=== PATIENT | female | born 1995 | race Asian ===

== ENCOUNTER → 2018-08-20 | Outpatient (REF) | payer OTHER | LOC: M LAB REF 15:19 | PROVIDERS: ATTEND Physician Assistant | DX: R11.2 Nausea with vomiting, unspecified (principal); R30.0 Dysuria; Z33.1 Pregnant state, incidental ==

== ENCOUNTER → 2018-09-15 | Outpatient (REF) | payer OTHER | LOC: M LAB REF 17:18 | PROVIDERS: ATTEND Physician Assistant | DX: R30.0 Dysuria (principal) ==

== ENCOUNTER → 2018-10-05 | Outpatient (REF) | payer OTHER ==
[2018-10-05 19:05] LABS: HEMATOCRIT 36.6 % (36.0-47.0); HEMOGLOBIN 12.5 g/dl (12.0-15.5); MEAN CORPUSCULAR HEMOGLOBIN 29.8 pg (27.0-33.0); MEAN CORPUSCULAR HGB CONC 34.2 g/dl (32.0-36.5); MEAN CORPUSCULAR VOLUME 87.1 fl (80.0-96.0); PLATELET COUNT, AUTOMATED 280 10^3/uL (150-450); WHITE BLOOD COUNT 13.9 10^3/uL (4.0-10.0)
[2018-10-05 20:34] LABS: HCG, SERUM QUANTITATIVE 56853 MIU/ML
[2018-10-06 09:38] LABS: RUBELLA IgG QUALITATIVE IMMUNE (IMMUNE)
[2018-10-06 10:09] LABS: HIV 1&2 SCREEN CENTAUR NEGATIVE (NEGATIVE)
== END ==
LOC: M LAB REF 17:47
PROVIDERS: ATTEND Obstetrics & Gynecology
DX: O36.80X0 Pregnancy with inconclusive fetal viability, not applicable or unspecified (principal)

== ENCOUNTER → 2019-01-10 | Outpatient (CLI) | payer OTHER ==
[2019-01-10 16:53] LABS: HEMATOCRIT 36.6 % (36.0-47.0); HEMOGLOBIN 12.2 g/dl (12.0-15.5); MEAN CORPUSCULAR HEMOGLOBIN 30.6 pg (27.0-33.0); MEAN CORPUSCULAR HGB CONC 33.3 g/dl (32.0-36.5); MEAN CORPUSCULAR VOLUME 91.7 fl (80.0-96.0); PLATELET COUNT, AUTOMATED 221 10^3/uL (150-450); RED BLOOD COUNT 3.99 10^6/uL (4.00-5.40); WHITE BLOOD COUNT 14.8 10^3/uL (4.0-10.0)
== END ==
LOC: M LAB 14:39
PROVIDERS: ATTEND Obstetrics & Gynecology
DX: Z36.89 Encounter for other specified antenatal screening (principal); Z3A.00 Weeks of gestation of pregnancy not specified

== ENCOUNTER → 2019-02-25 | Outpatient (CLI) | payer OTHER ==
[~2019-02-25] MED LIST: PRENTAB9 PO
--- NOTE | 2019-02-25 15:24 | REP ---
Clinical: Anatomical evaluation. Comparison: None available . Findings: Examination demonstrates a single live intrauterine in cephalic presentation. motion is identified by technologist. Placenta is noted posterior and grade 2 without evidence for placenta previa or abruption. Amniotic fluid volume is normal. Cervix measures 3.5 cm in length and appears closed. Nuchal cord cannot be excluded. Gestational age by LMP 34 weeks 0 days with FRANKLIN 04/08/2019 . Gestational age by current measurements 33 weeks 0 days with FRANKLIN 04/15/2019 . FHR equals 119 beats per minute. BPD 8.6 cm 34 weeks 5 days HC 30.6 cm 34 weeks 0 days AC 28.8 cm 32 weeks 6 days FL 6.1 cm 31 weeks 6 days HL 5.5 cm 31 weeks 6 days HC/AC ratio 1.06 Estimated weight 2057 grams ( 25 percentile). Anatomical assessment demonstrates normal structures including cranium, cavum, lungs, four-chamber heart/ventricular outflow tracts, diaphragm, stomach, cord insertion/three-vessel cord, kidneys/bladder, and spine. Impression: 1. Single live intrauterine in cephalic presentation demonstrating appropriate interval growth. 2. Nuchal cord cannot be excluded. 3. Limited evaluation of the posterior fossa, facial features, cord plexus, and extremities. Remainder of the anatomical assessment is within normal limits. Electronically Signed by Haris Reza MD 02/25/2019 03:15 P
== END ==
LOC: M RAD 14:09
PROVIDERS: ATTEND Advanced Practice Midwife
DX: Z34.80 Encounter for supervision of other normal pregnancy, unspecified trimester (principal)

== ENCOUNTER 2019-03-09 16:27 | Inpatient (IN) | payer OTHER ==
[~2019-03-09] VITALS: Ht 157.5 cm; Wt 61.8 kg
[2019-03-09] VITALS (8 sets, daily range): BP systolic 105–122; BP diastolic 56–73
[2019-03-09] MEDS ORDERED: PENICILLIN G POTASSIUM IV 5 MU in D5W MINI-BAG PLUS 100 ML IV STA (16:36)
[2019-03-09] MEDS ORDERED: LACTATED RINGER'S 1000 ML IV STA (16:36)
[2019-03-09] MEDS ORDERED: PRENTAB9 PO (17:15)
[2019-03-09 17:29] LABS: HEMATOCRIT 37.2 % (36.0-47.0); HEMOGLOBIN 12.7 g/dl (12.0-15.5); MEAN CORPUSCULAR HEMOGLOBIN 30.5 pg (27.0-33.0); MEAN CORPUSCULAR HGB CONC 34.1 g/dl (32.0-36.5); MEAN CORPUSCULAR VOLUME 89.4 fl (80.0-96.0); PLATELET COUNT, AUTOMATED 211 10^3/uL (150-450); RED BLOOD COUNT 4.16 10^6/uL (4.00-5.40); WHITE BLOOD COUNT 17.5 10^3/uL (4.0-10.0)
[2019-03-09 17:40] LABS: INR 0.95; PARTIAL THROMBOPLASTIN TIME 25.8 SECONDS (25.0-38.4); PROTHROMBIN TIME 12.4 SECONDS (11.8-14.0)
[2019-03-09 17:52] LABS: AMPHETAMINES URINE REFLEX NEGATIVE (NEGATIVE); BARBITURATES URINE REFLEX NEGATIVE (NEGATIVE); BENZODIAZEPINES URINE REFLEX NEGATIVE (NEGATIVE); CANNABINOIDS URINE REFLEX NEGATIVE (NEGATIVE); COCAINE METABOLITE URINE REFLE NEGATIVE (NEGATIVE); METHADONE URINE REFLEX NEGATIVE (NEGATIVE); OPIATES URINE REFLEX NEGATIVE (NEGATIVE); PHENCYCLIDINE URINE REFLEX NEGATIVE (NEGATIVE)
[2019-03-09] MEDS ORDERED: LR 1,000 ML IV SCH (18:30)
[2019-03-09] MEDS ORDERED: OXYTOCIN 30 UNITS IN 0.9% NaCl 500ML IV BAG (J2590) As Ordered ONE (19:51)
[2019-03-09] MEDS ORDERED: OXYTOCIN DRIP 30 UNITS in APPROPRIATE DILUENT 1 EA IV SCH (20:37)
[2019-03-09] MEDS ORDERED: IBUPROFEN 600 MG TAB PO PRN (20:45)
[2019-03-09] MEDS ORDERED: DOCUSATE SODIUM 100 MG CAP PO PRN (20:45)
[2019-03-09] MEDS ORDERED: METHYLERGONOVINE MALEATE 0.2 MG TAB PO PRN (20:45)
[2019-03-09] MEDS ORDERED: MEASLES,MUMPS,RUBELLA VACCINE INJ (MMR-II) (90707) SC SCH (20:45)
[2019-03-09] MEDS ORDERED: ACETAMINOPHEN TAB 650MG DOSE (2X325MG) PO PRN (20:45)
[2019-03-09] MEDS ORDERED: ACETAMINOPHEN 500 MG TAB PO PRN (20:45)
[2019-03-09] MEDS ORDERED: ANUSOL HC CREAM 30GM TOP PRN (20:45)
[2019-03-09] MEDS ORDERED: RHOGAM 300 MCG (1500 IU) INJ (J2790) IM SCH (20:45)
[2019-03-09] MEDS ORDERED: LIDOCAINE 1% MDV 20ML VIAL INFIL ONE (20:45)
--- NOTE | 2019-03-09 21:01 | DN ---
DATE: 03/09/2019 Stacey is a 23-year-old 1, para 0-1-0-1 now admitted to labor and delivery with clinical abruption third trimester bleeding. Her labor progressed physiologically. She had assisted rupture of membranes. She coped with her labor with deep breathing. She completed full dilation at 1949. She pushed to a normal spontaneous vaginal delivery of a live female infant in occiput anterior (OA) position with restitution to left occiput transverse (LOT) position at 2009. There was a nuchal cord times one loose that was reduced manually at the time of delivery. The shoulders delivered spontaneously and the corpus immediately followed. The female was placed on the maternal abdomen, crying and active. Her mouth and nose were bulb suctioned. The cord was clamped times two, once pulsations ceased and cut by the father of the baby under my direction. A spontaneous expulsion of an intact placenta with three-vessel cord by Meyers mechanism was at 2014. Uterine hemostasis achieved with IV Pitocin rapid infusion and uterine and fundal massage. Estimated blood loss 350 mL. Perineum and vagina were inspected, noted to have bilateral labial lacerations and a perineal abrasion which was bleeding. The perineal abrasion was infiltrated with 1% lidocaine and repaired with 3-0 repeat. The placenta was inspected, cotyledons were noted to be intact, was noted to have a small approximately 5-7% abruption. [facility] female weighed 2400 grams, 5 pounds, 5 ounces, score 8 and 9. Mom is going to breastfeed her daughter and the family has named her Presea. At the close of delivery, lap counts, needle counts and instrument counts were correct and verified.
--- NOTE | 2019-03-09 21:53 | HPE ---
DATE OF ADMISSION: 03/09/2019 Stacey is a 23-year-old 1, para 0 at 36-5/7 weeks, estimated date of confinement (EDC) of based on second-trimester ultrasound. She presents to labor and delivery today following an outpatient evaluation in the care office due to third-trimester vaginal bleeding with use of the restroom. She does report some minimal cramping. Reports continued bleeding since noting the first episode at 1515. She denies leakage of fluid. She does report the fetus has been active. Her care was initiated at [facility] in the second trimester with a transfer of care to [facility] at 32 weeks. Her course has been well thus far uncomplicated. OBSTETRICAL HISTORY: Primigravida. OBSTETRIC LABORATORIES: O positive, antibody screen negative . Pap normal. Rubella immune, VDRL nonreactive. Urine culture no growth. Hepatitis B surface antigen negative. HIV negative. Hepatitis C antibody negative. Gonorrhea and chlamydia negative. Gestational diabetic screening normal at 122, and her GBS is unknown. PAST MEDICAL HISTORY. Seasonal allergies. SURGERIES: None. FAMILY HISTORY: Diabetes. SOCIAL HISTORY: The patient is . Her is at bedside and supportive. She is a nonsmoker. Denies alcohol and drug use. No history of any sexually transmitted infections and denies history of abuse, physical, sexual, and emotional. ALLERGIES: No known drug allergies. CURRENT MEDICATIONS: vitamin. OBJECTIVE: Vital signs have not been taken upon patient's arrival. She is alert and oriented times three. She is in no apparent distress. heart rate is 120 with moderate variability. Positive accelerations observed. No decelerations observed. She is flavia approximately every 2-3 minutes. Sterile speculum exam which was performed in the care office noted membranes visualized. Bright red bleeding from the cervical os, pooling within the speculum. Clot removed with swab. Sterile vaginal exam: 4-5 cm dilated, 90% effaced, -2 station, mid position, bulging bag. GBS was obtained. ASSESSMENT: Interim at 36-5/7 weeks. heart rate is currently category 1. Appears to be a clinical abruption. PLAN: Per consult with Dr. Silvestre Taveras, admit the patient to labor and delivery. Augment labor. Consider assisted rupture of membranes or intravenous (IV) Pitocin. Labs routine with the addition of coagulations and fibrinogen. I did review the plan of care with the patient and her . Risks and benefits have been reviewed. The patient and her had all of their questions answered. I do anticipate to labor and a spontaneous vaginal delivery.
[2019-03-09] MEDS ORDERED: PENICILLIN G POTASSIUM IV 2.5 MU in APPROPRIATE DILUENT 1 EA IV SCH (22:00)
[2019-03-09] MEDS: DIBUCAINE 1% OINTMENT 30GM TOP PRN (23:21)
[2019-03-09] MEDS: IBUPROFEN 800 MG TAB PO PRN (23:21)
[2019-03-10 06:00] VITALS: BP 101/54
[2019-03-10] MEDS: IBUPROFEN 800 MG TAB PO PRN (08:06)
[2019-03-10] MEDS: PRENATAL VITAMINS CHEWABLE TABLET PO SCH (08:06)
[2019-03-10] MEDS: DIBUCAINE 1% OINTMENT 30GM TOP PRN (08:21)
[2019-03-10 17:53] VITALS: BP 106/68
[2019-03-11 06:00] VITALS: BP 101/57
[2019-03-11] MEDS ORDERED: IBUP-1022 PO (06:39)
[2019-03-11] MEDS: PRENATAL VITAMINS CHEWABLE TABLET PO SCH (08:53)
== END 2019-03-11 12:40 | disposition home or self-care (01) | DRG 807 ==
LOC: M LDI 16:27 → M OBS 23:01
PROVIDERS: ADMIT Advanced Practice Midwife; ATTEND Advanced Practice Midwife
PROC: 10E0XZZ Delivery of Products of Conception, External Approach (ICD-10-PCS; principal; 2019-03-09)
PROC: 10907ZC Drainage of Amniotic Fluid, Therapeutic from Products of Conception, Via Natural or Artificial Opening (ICD-10-PCS; 2019-03-09)
PROC: 0HQ9XZZ Repair Perineum Skin, External Approach (ICD-10-PCS; 2019-03-09)
DX: O45.93 Premature separation of placenta, unspecified, third trimester (principal); Z37.0 Single live birth; Z3A.36 36 weeks gestation of pregnancy; O69.81X0 Labor and delivery complicated by cord around neck, without compression, not applicable or unspecified; O70.0 First degree perineal laceration during delivery

== ENCOUNTER → 2019-03-09 | Outpatient (REF) | payer OTHER ==
[~2019-03-09] MED LIST changes: +IBUP-1022 PO
== END ==
LOC: M LAB REF 17:23
PROVIDERS: ATTEND Advanced Practice Midwife
DX: Z34.83 Encounter for supervision of other normal pregnancy, third trimester (principal)